=== PATIENT | female | born 1945 | race Caucasian/White ===

== ENCOUNTER 2016-12-19 10:13 | Emergency (ER) | payer MEDICARE ==
[2016-12-19 10:39] VITALS: BP 148/75
--- OUTSIDE RECORDS SUMMARY | 2016-12-19 11:12 | XMS REPORT | Summary of Care ---
:1945 Author Organization [facility] Address [address] [place] [address] [address] [place] [address] Care Team Providers Name Role Phone Mariola Goodrich Primary Care Physician Encounter Date(s): 11/11/16 - 11/11/16 [facility] [address] [place] [address] [address] [place] [address]- Discharge Diagnosis: Cervical dysphagia Discharge Disposition: Discharged to Home or Self Care Attending Physician: Jayce Capps DO Referring Physician: Mariola Goodrich MD Vital Signs Most recent to oldest [Reference Range]: 1 Peripheral Pulse Rate [60-100 bpm] 69 bpm (11/11/16 2:05 PM) Blood Pressure [90-130/60-90 mmHg] 143/65mmHg *HI* (11/11/16 2:05 PM) Mean Arterial Pressure, Cuff 91 mmHg (11/11/16 2:05 PM) Most recent to oldest [Reference Range]: 1 Height/Length Measured 152 cm (11/11/16 2:05 PM) Weight Dosing 85.8 kg (11/11/16 2:05 PM) Weight Measured 85.8 kg (11/11/16 2:05 PM) BSA Measured 1.82 m2 (11/11/16 2:05 PM) Body Mass Index Measured 37.14 kg/m2 (11/11/16 2:05 PM) Problem List No data available for this section Allergies, Adverse Reactions, Alerts No Known Medication Allergies Medications Aleve 220 mg, Oral, HS, 0 Refill(s), Start Date: 06/25/15 13:02:00 CDT Start Date: 06/25/15 Stop Date: 06/03/16 Status: Discontinuedenalapril 20 mg oral tablet 1 tab(s), Oral, Daily, 0 Refill(s), Start Date: 06/25/15 13:01:00 CDT Start Date: 06/25/15 Status: OrderedglipiZIDE 10 mg, Oral, BID, 0 Refill(s), Start Date: 06/25/15 13:02:00 CDT Start Date: 06/25/15 Status: Orderedhydrochlorothiazide 25 mg, Oral, Daily, 0 Refill(s), Start Date: 06/25/15 13:01:00 CDT Start Date: 06/25/15 Status: OrderedHYDROcodone-acetaminophen 5 mg-325 mg oral tablet See Instructions, 1-2 tab(s) Oral q4-6hr interval not to exceed 8 tablets/day, # 50 tab(s), 0 Refill(s), Start Date: 06/03/16 6:55:00 CDT, Pharmacy: [place], [place] Special Instructions: 1-2 tab(s) Oral q4-6hr interval not to exceed 8 tablets/ day Start Date: 06/03/16 Stop Date: 06/18/16 Status: Discontinuedlovastatin 10 mg, Oral, HS, 0 Refill(s), Start Date: 06/25/15 13:02:00 CDT Start Date: 06/25/15 Status: OfnlprdWku-X-Jzt Women 1 tab(s), Oral, Daily, 0 Refill(s), Start Date: 06/25/15 13:02:00 CDT Start Date: 06/25/15 Status: OrderedVitamin C 500 mg, Oral, Daily, 0 Refill(s), Start Date: 06/25/15 13:02:00 CDT Start Date: 06/25/15 Status: Orderedvitamin E 400 IntlUnit(s), Oral, Daily, 0 Refill(s), Start Date: 06/25/15 13:02:00 CDT Start Date: 06/25/15 Status: Ordered Results No data available for this section Immunizations No data available for this section Procedures Procedure Date Related Diagnosis Body Site Release Carpal Tunnel (Right, Hand R)1 06/03/16 Kidney stone 02/2007 1auto-populated from documented surgical case Social History No data available for this section Assessment and Plan No data available for this section
--- OUTSIDE RECORDS SUMMARY | 2016-12-19 11:12 | XMS REPORT | Summary of Care ---
:[address] [facility] Address [address] [place] [id number]- Care Team Providers Name Role Phone Mariola Goodrich Primary Care Physician Encounter Date(s): 11/16/16 - 11/16/[address] [id number] Discharge Disposition: 01 Discharged to Home or Self Care Attending Physician: Jayce Capps DO Admitting Physician: Jayce Capps DO Vital Signs No data available for this section Problem List No data available for this [...] Refill(s), Start Date: 06/03/16 6:55:00 CDT, Pharmacy: [facility] [place], [place] Special Instructions: 1-2 tab(s) Oral q4-6hr interval not to exceed 8 tablets/ day Start Date: 06/03/16 Stop Date: 06/18/16 Status: Discontinuedlovastatin 10 mg, Oral, HS, 0 Refill(s), Start Date: 06/25/15 13:02:00 CDT Start Date: 06/25/15 Status: [id number]-V-[id number] Women 1 tab(s), Oral, Daily, 0 Refill(s), [...]
[2016-12-19] MEDS ORDERED: KETOROLAC TROMETHAMINE 60 MG/2 ML VIAL IM ONE (11:23)
[2016-12-19] MEDS ORDERED: KETOROLAC TROMETHAMINE 30 MG/ML VIAL ONE (11:28)
--- NOTE | 2016-12-19 11:30 | ERNOTE ---
Upper Extremity HPI - Narrative Date of Service: 12/19/16 - General Extremities Pain Location: wrist: right Time Seen by Provider: 12/19/16 10:44 Source: patient Exam Limitations: no limitations - Immun/Allergies/Home Medications Immunizations: IMMUNIZATION HX Immunizations Up to Date Yes: tetanus within last 10 years History of Influenza Vaccine No Hx Pneumococcal Vaccination No Allergies/Adverse Reactions: Allergies Allergy/AdvReac Type Severity Reaction Status Date / Time No Known Allergies Allergy Verified 12/19/16 10:38 Home Medications: HOME MEDICATIONS Aleve 06/28/15 [Last Taken Unknown] Enalapril/Hydrochlorothiazide 20 mg PO DAILY 06/28/15 [Last Taken 09/17/16 08:00 ] Glipizide 10 mg PO DAILY 06/28/15 [Last Taken 09/17/16 08:00] Hydrochlorothiazide 25 mg PO DAILY 06/28/15 [Last Taken 09/17/16 08:00] Lovastatin 10 mg PO DAILY 06/28/15 [Last Taken 09/16/16 17:00] Multivitamin 06/28/15 [Last Taken 09/17/16 08:00] Vitamin C 06/28/15 [Last Taken 09/17/16 17:00] Vitamin E 06/28/15 [Last Taken 09/17/16 08:00] - History of Present Illness Narrative: 71-year-old female presenting to emergency room after a fall yesterday. Patient states that her right wrist hurts. Pain started after fall yesterday and has increased over the last day. Date (Duration): 12/19/16 Occurred: yesterday Location of Incident: home Severity: mild Method of Injury: Reports: fell Reason for Fall: Reports: lost balance - tripped over step, tripped Loss of Consciousness: Reports: no loss of consciousness Modifying Factors - (Improves): Reports: cold therapy, immobilization Associated Symptoms: Denies: tingling, weakness, loss of power (rt arm) Other Injuries: Reports: none Review of Systems - Narrative Narrative: Has right wrist pain. She is able to move all extremities. Sensory motion and sensation are all intact. Patient is able to move wrist with some mild discomfort. Capillary refills are brisk. Denies numbness, tingling, and extremity is warm. no bruising observed - Review of Systems Constitutional: Present: no symptoms reported EYE: Present: no symptoms reported ENT: Present: no symptoms reported Respiratory: Present: no symptoms reported Cardiology: Present: no symptoms reported Gastrointestinal/Abdominal: Present: no symptoms reported Genitourinary: Present: no symptoms reported Musculoskeletal: Present: See HPI, joint pain - right wrist Skin: Present: no symptoms reported Neurological: Present: no symptoms reported Endocrine: Present: no symptoms reported Hematologic/Lymphatic: Present: no symptoms reported Psych: Present: no symptoms reported - Patient's Past Medical History Patient History - Medical: Arthritis, Diabetes Type 2 Patient History - Cardiac/Respiratory: No pertinent hx Patient History - Cancer: No Hx of Cancer Patient History - Surgical Procedures: Other Patient History - Other: None LMP (females 10-50): Menopausal - Family History Mother Family History - Medical: Children Family History - Medical: No pertinent hx, Other - Social History Living Situations: home Psych History: No pertinent hx Does anyone smoke in the home?: No - Immunizations Immunizations Up to Date: Yes - tetanus within last 10 years Hx Pneumococcal Vaccination: No History of Influenza Vaccine: No Physical Exam - Physical Exam Narrative: The 71-year-old female presenting to the emergency room with right wrist pain after a fall. States she was at home and tripped over a concrete pad and landed on her right wrist. Upon exam right wrist is able to be moved, range of motion is within normal limits, color sensation and motion are all within normal limits. Left knee does have a 3 x 3 size bruise. Patient denies pain with walking. Tender to palpation. Patient does not feel the need for an x- ray to her knee after it was offer. General Appearance: Present: wd/wn, no apparent distress Ears, Nose, Throat: Present: normal ENT inspection Neck: Present: normal inspection Respiratory: Present: no respiratory distress Cardiovascular/Chest: Present: regular rate, rhythm Gastrointestinal/Abdominal: Present: normal bowel sounds Back Exam: Present: normal inspection Extremity Exam: Present: normal except - - right wrist pain, bruise to left knee. discomfort with palp. states she is able to walk easily with out discomfort. Neurological Exam: Present: alert, oriented, normal mood/affect, no motor/ sensory deficits Skin Exam: Present: normal color Lymphatic Exam: Present: no adenopathy ED Progress - Vital Signs Patient's Vital Signs:: I have reviewed the patient's vital signs. Vital Signs: Vital Signs 12/19/16 10:36 Temperature 37.6 C H Pulse Rate 79 Respiratory 16 Rate Blood Pressure 148/75 O2 Sat by Pulse 99 Oximetry - X-Ray X-Ray #1 X-Ray: wrist Interpretation: Reviewed by me X-ray Comments: x ray viewed by Dr Tinajero. No acute fracture observed per ED Attending. - Progress/Reassessment Chief Complaint: Upper Extremity Injury/Problem Progress:: Improved Departure Clinical Impression: Strain of right wrist Qualifiers: Encounter type: initial encounter Qualified Code(s): S66.911A - Strain of unspecified muscle, fascia and tendon at wrist and hand level, right hand, initial encounter - Departure Disposition: Home self-care Condition: Stable Instructions: Wrist Pain, [id number]-[id number] Print Language: Maori Additional Instructions: Continue previous home medications. May take [id number]-rvm-[id number] anti- inflammatory. Rest right rest. Apply ice 20 minutes on and 20 minutes off for discomfort. Return to the emergency room if condition worsens or he have increased pain or swelling. Referrals: Mariola Goodrich MD [Primary Care Provider] -
[2016-12-19] MEDS ORDERED: KETOROLAC TROMETHAMINE 30 MG/ML VIAL IM ONE (11:36)
== END 2016-12-19 11:47 | disposition home or self-care (01) ==
LOC: ER 10:13
PROC: 2W3EX1Z Immobilization of Right Hand using Splint (ICD-10-PCS; principal; 2016-12-19)
DX: S66.911A Strain of unspecified muscle, fascia and tendon at wrist and hand level, right hand, initial encounter (principal); W01.0XXA Fall on same level from slipping, tripping and stumbling without subsequent striking against object, initial encounter; Z91.81 History of falling; Y92.009 Unspecified place in unspecified non-institutional (private) residence as the place of occurrence of the external cause; Y99.9 Unspecified external cause status

== ENCOUNTER 2017-01-17 12:47 | Day surgery (SDC) | payer MEDICARE ==
[2017-01-17] MEDS ORDERED: GLUCAGON,HUMAN RECOMBINANT 1 MG VIAL IV ONE (13:35)
--- NOTE | 2017-01-17 13:35 | ERNOTE ---
Medical Problem HPI - Narrative Date of Service: 01/17/17 - General Chief Complaint: Foreign Body Exam Limitations: no limitations - Immun/Allergies/Home Medications Immunizations: IMMUNIZATION HX Immunizations Up to Date Yes History of Influenza Vaccine No Hx Pneumococcal Vaccination No Allergies/Adverse Reactions: Allergies No Known Allergies Allergy (Verified 01/17/17 13:20) Home Medications: HOME MEDICATIONS Aleve 06/28/15 [Last Taken Unknown] Enalapril/Hydrochlorothiazide 20 mg PO DAILY 06/28/15 [Last Taken 09/17/16 08:00 ] Glipizide 10 mg PO DAILY 06/28/15 [Last Taken 09/17/16 08:00] Hydrochlorothiazide 25 mg PO DAILY 06/28/15 [Last Taken 09/17/16 08:00] Lovastatin 10 mg PO DAILY 06/28/15 [Last Taken 09/16/16 17:00] Multivitamin 06/28/15 [Last Taken 09/17/16 08:00] Vitamin C 06/28/15 [Last Taken 09/17/16 17:00] Vitamin E 06/28/15 [Last Taken 09/17/16 08:00] - History of Present History Narrative: This 71-year-old female presenting to the emergency room. States that she was actually has chicken stuck in her throat. Patient was eating a piece of chicken which was not able to fully swallow it all the way down. Patient states that this has happened before, and that she did have an esophageal dilatation that was done in december. Date (Duration): 01/17/17 Timing: constant Severity: mild Modifying Factors - (Improves): Present: rest Modifying Factors - (Worsens): Present: eating Review of Systems - Review of Systems Constitutional: Present: no symptoms reported EYE: Present: no symptoms reported ENT: Present: no symptoms reported Respiratory: Present: no symptoms reported Cardiology: Present: no symptoms reported Gastrointestinal/Abdominal: Present: See HPI, vomiting Genitourinary: Present: no symptoms reported Musculoskeletal: Present: no symptoms reported Skin: Present: no symptoms reported Neurological: Present: no symptoms reported Endocrine: Present: no symptoms reported Hematologic/Lymphatic: Present: no symptoms reported Psych: Present: no symptoms reported - Narrative Narrative: had dilitation of her esophagus in December she is unsure of the date. - Patient's Past Medical History Patient History - Medical: Arthritis, Diabetes Type 2 Patient History - Cardiac/Respiratory: Hypertension, Hyperlipidemia Patient History - Cancer: No Hx of Cancer Patient History - Surgical Procedures: Other Patient History - Other: None - Family History Mother Family History - Medical: Children Family History - Medical: No pertinent hx, Other - Social History Living Situations: home Psych History: No pertinent hx Does anyone smoke in the home?: No Smoking Status: Never smoker Alcohol Use: none Drug Use: none - Immunizations Immunizations Up to Date: Yes Hx Pneumococcal Vaccination: No History of Influenza Vaccine: No Physical Exam - Physical Exam Narrative: This pleasant 71-year-old female complains of feeling like she has something stuck in her throat. She is unable to swallow at this time. States that she can feel something there. No food can be seen when viewing her oropharyngeal airway General Appearance: Present: wd/wn, alert, no apparent distress Eye Exam: Normal inspection: bilateral Ears, Nose, Throat: Absent: nasal congestion, sinus pain/drainage, pharyngeal erythema, pharyngeal swelling Neck: Present: normal inspection, nontender, full range of motion Respiratory: Present: no respiratory distress, normal breath sounds, no accessory muscle use Cardiovascular/Chest: Present: regular rate, rhythm, no murmur, normal peripheral pulses Gastrointestinal/Abdominal: Present: normal bowel sounds, nontender, soft Extremity Exam: Present: normal inspection, normal range of motion, no edema Neurological Exam: Present: alert, oriented, normal mood/affect Skin Exam: Present: normal color Lymphatic Exam: Present: no adenopathy ED Progress - Date and Time Seen: Date and Time: 01/17/17 16:24 Patient unable to pass food with treatment that was able to be provided in the ER. Dr. Avila notified for consult of EGD. - Results and Orders Patient's Lab Results:: I have reviewed the patient's lab results. - Vital Signs Patient's Vital Signs:: I have reviewed the patient's vital signs. Vital Signs: Vital Signs 01/17/17 13:15 Temperature 37.3 C Pulse Rate 89 Respiratory 16 Rate Blood Pressure 139/63 O2 Sat by Pulse 97 Oximetry - Progress/Reassessment Chief Complaint: Foreign Body Plan - Plan Plan: Dr Avila to take patient to IR for EGD and food removal. Departure - Departure Clinical Impression: Esophageal foreign body Qualifiers: Encounter type: initial encounter Qualified Code(s): T18.108A - Unspecified foreign body in esophagus causing other injury, initial encounter Disposition: [facility] Condition: Good
[2017-01-17] MEDS ORDERED: GLUCAGON,HUMAN RECOMBINANT 1 MG VIAL ONE (13:49)
[2017-01-17 14:44] LABS: Hematocrit 45.2 % (37.0-47.0); Hemoglobin 14.8 gm/dL (12.5-16.0); Mean Corpuscular Hemoglobin 29.5 pg (27-31); Mean Corpuscular Hgb Conc 32.7 g/dl (32-36); Mean Platelet Volume 11.4 fl (6.0-9.5); Neutrophil # 3.7 K/mm3 (1.3-6.0); Neutrophil % 52.8 % (42-75.0); Platelet Count 226 K/mm3 (150-450); Red Blood Count 5.02 M/mm3 (4.2-5.4); Red Cell Distribution Width 13.1 % (11.5-14.0); White Blood Count 6.9 K/mm3 (4.0-10.5)
[2017-01-17 15:00] LABS: Bilirubin, Total 0.4 mg/dL (0.0-1.1); Ca. Corrected For Albumin 8.6 mg/dL (8.4-10.2); Calcium * 8.9 mg/dL (7.9-10.9); Carbon Dioxide 30.8 mmol/L (24-32.6); Potassium 3.8 mmol/L (3.4-4.6); Total Protein 7.5 gm/dL (6.2-8.2)
--- NOTE | 2017-01-17 15:22 | HP ---
Chief Complaint - Chief Complaint Date of Service: 01/17/17 Time of Service: 15:15 Chief Complaint: cannot swallow History of Present Illness: Was eating chicken at noon at [employer] and piece got stuck and cannot swallow or handle secretions. Glucagon has been ineffective. She cannot swallow saliva. She had EGD with FB removal 09/18/16. She subsequently saw Dr Goodrich for dysphagia on 11/11/16 and was referred to Dr Capps. He did an EGD on 01/04/17 with dilation. He told her she had a hiatal hernia and he stretched both ends. She is due to see him back tomorrow for f/u visit. There is a path report of esophageal biopsy (squamous mucosa with reflux changes ) but no OP note. - Patient's Past Medical History Patient History - Medical: Arthritis, Diabetes Type 2 Patient History - Cardiac/Respiratory: Hypertension, Hyperlipidemia Patient History - Cancer: No Hx of Cancer Patient History - Surgical Procedures: Other Patient History - Other: None - Family History Mother Family History - Medical: Children Family History - Medical: No pertinent hx, Other - Social History Living Situations: home Psych History: No pertinent hx Does anyone smoke in the home?: No Smoking Status: Never smoker Alcohol Use: none Drug Use: none - Immunizations Immunizations Up to Date: Yes Hx Pneumococcal Vaccination: No History of Influenza Vaccine: No Review Of Systems (GEN) - Review of Systems EENTM: Present: No Symptoms Reported Respiratory: Present: Other - Just got over 2 weeks of bronchitis--treated with Zpack Cardiac: Present: No Symptoms Reported Abdominal: Present: Vomiting. Absent: Abdominal Pain Genitourinary: Absent: Burning Musculoskeletal: Present: Other - pain in right hand from fall Neurological: Present: No Symptoms Reported Skin: Present: No Symptoms Reported, Bruising Immunizations: IMMUNIZATION HX Immunizations Up to Date Yes History of Influenza Vaccine No Hx Pneumococcal Vaccination No Allergies/Adverse Reactions: Allergies Allergy/AdvReac Type Severity Reaction Status Date / Time No Known Allergies Allergy Verified 01/17/17 13:20 Home Medications: HOME MEDICATIONS Aleve 06/28/15 [Last Taken Unknown] Enalapril/Hydrochlorothiazide 20 mg PO DAILY 06/28/15 [Last Taken 09/17/16 08:00 ] Glipizide 10 mg PO DAILY 06/28/15 [Last Taken 09/17/16 08:00] Hydrochlorothiazide 25 mg PO DAILY 06/28/15 [Last Taken 09/17/16 08:00] Lovastatin 10 mg PO DAILY 06/28/15 [Last Taken 09/16/16 17:00] Multivitamin 06/28/15 [Last Taken 09/17/16 08:00] Vitamin C 06/28/15 [Last Taken 09/17/16 17:00] Vitamin E 06/28/15 [Last Taken 09/17/16 08:00] Exam - Exam Vital Signs: Vital Signs - Last Taken Temp 37.3 C 01/17/17 13:15 Pulse 89 01/17/17 13:15 Resp 16 01/17/17 13:15 BP 139/63 01/17/17 13:15 Pulse Ox 97 01/17/17 13:15 Constitutional: Present: Alert, Oriented x3, Cooperative, Mild distress ENT Exam: Present: normal ENT inspection Eye Exam: bilateral eye: normal inspection Neck: Present: full range of motion, normal inspection Back Exam: Present: normal inspection Breasts: Present: Exam deferred Respiratory: Present: lungs clear, no respiratory distress Cardiovascular/Chest: Present: normal peripheral pulses, regular rate, rhythm, no murmur Abdomen: Present: nontender /Rectal: Present: Exam deferred Extremity: Present: normal range of motion, no calf tenderness, lower extremity edema Skin Exam: Present: normal color, warm/dry Neurologic: Present: egg caser II-XII nml as tested, normal cerebellar test, no motor/ sensory deficits Appearance: Present: appropriate appearance, appropriate insight Eye contact: Present: cooperative, good eye contact, normal speech Thoughts: Present: normal thought pattern Diagnostic Studies: Abnormal Lab Results 01/17/17 01/17/17 Range/Units 14:30 14:30 MPV 11.4 H (6.0-9.5) fl Eosinophils % 5.5 H (0.0-3.0) % Plasma Sodium 143 H (130-142) mmol/L Est GFR (Non-Af Amer) 58 L (60-130) mL/min BUN/Creatinine Ratio 23.0 H (9.0-21.6) Random Glucose 180 H (70-110) mg/dL Laboratory Results WBC 6.9 K/mm3 (4.0-10.5) 01/17/17 14:30 RBC 5.02 M/mm3 (4.2-5.4) 01/17/17 14:30 Hgb 14.8 gm/dL (12.5-16.0) 01/17/17 14:30 Hct 45.2 % (37.0-47.0) 01/17/17 14:30 MCV 90.0 fl (78-100) 01/17/17 14:30 MCH 29.5 pg (27-31) 01/17/17 14:30 MCHC 32.7 g/dl (32-36) 01/17/17 14:30 RDW 13.1 % (11.5-14.0) 01/17/17 14:30 Plt Count 226 K/mm3 (150-450) 01/17/17 14:30 MPV 11.4 fl (6.0-9.5) H 01/17/17 14:30 Immature Gran % (Auto) 0.10 % (0.001-0.429) 01/17/17 14: Immature Gran # (Auto) 0.01 K/mm3 (0.000-0.0310) 01/17/17 14:30 Neutrophils % 52.8 % (42-75.0) 01/17/17 14:30 Lymphocytes % 32.2 % (20-51) 01/17/17 14:30 Monocytes % 8.4 % (0.0-9) 01/17/17 14:30 Eosinophils % 5.5 % (0.0-3.0) H 01/17/17 14:30 Basophils % 1.0 % (0.0-1.0) 01/17/17 14:30 Nucleated RBC % 0.0 k/mm3 (0-1) 01/17/17 14:30 Neutrophils # 3.7 K/mm3 (1.3-6.0) 01/17/17 14: Lymphocytes # 2.2 k/mm3 (1.5-3.5) 01/17/17 14: Monocytes # 0.6 k/mm3 (0.0-1.0) 01/17/17 14: Eosinophils # 0.4 k/mm3 (0.0-0.7) 01/17/17 14: Absolute Basophils 0.1 k/mm3 (0.0-0.1) 01/17/17 14:30 PTT (Endy) 25.9 Seconds (24-32) 01/17/17 14:30 Sodium 142 mmol/L (132-142) 01/17/17 14:30 Plasma Sodium 143 mmol/L (130-142) H 01/17/17 14:30 Potassium 3.8 mmol/L (3.4-4.6) 01/17/17 14:30 Chloride 105 mmol/L (97-106) 01/17/17 14:30 Carbon Dioxide 30.8 mmol/L (24-32.6) 01/17/17 14:30 Anion Gap 10.0 mmol/L (6.8-13.8) 01/17/17 14:30 BUN 23 mg/dL (3-23) 01/17/17 14:30 Creatinine 1.00 mg/dL (0.4-1.4) 01/17/17 14:30 Est GFR (Non-Af Amer) 58 mL/min (60-130) L 01/17/17 14:30 BUN/Creatinine Ratio 23.0 (9.0-21.6) H 01/17/17 14:30 Random Glucose 180 mg/dL (70-110) H 01/17/17 14:30 Calcium 8.9 mg/dL (7.9-10.9) 01/17/17 14:30 Calcium Adj for Albumin 8.6 mg/dL (8.4-10.2) 01/17/17 14:30 Total Bilirubin 0.4 mg/dL (0.0-1.1) 01/17/17 14:30 AST 20 U/L (0-48) 01/17/17 14:30 ALT 29 U/L (19-67) 01/17/17 14:30 Alkaline Phosphatase 61 U/L (50-170) 01/17/17 14:30 Total Protein 7.5 gm/dL (6.2-8.2) 01/17/17 14:30 Albumin 4.0 gm/dl (3.4-5.0) 01/17/17 14:30 Assessment/Plan - Assessment/Plan (1) Esophageal foreign body Assessment: She will require esophagoscopy for foreign body removal with general anesthesia to protect airway. Discussed this with her and her including risks and expected course. After an interactive discussion, her questions have been answered to her apparent satisfaction and she has given informed consent for esophagoscopy with foreign body removal. Her Summary Sheet from the clinic was printed and her last Clinic Visit Note was also printed. Problem: Acute Qualifiers: Encounter type: initial encounter Qualified Code(s): T18.108A - Unspecified foreign body in esophagus causing other injury, initial encounter
[2017-01-17] MEDS ORDERED: RINGERS SOLUTION,LACTATED 1,000 ML IV ONE (16:55)
[2017-01-17] MEDS ORDERED: PANTOPRAZOLE SODIUM 40 MG in NORMAL SALINE 100 ML IV ONE (17:31)
[2017-01-17] MEDS ORDERED: RINGERS SOLUTION,LACTATED 1,000 ML IV PRN (17:31)
--- NOTE | 2017-01-17 17:39 | OR ---
Operative Report - Dictated Report Narrative: Operative Report Date of operation 01/17/2017 Preoperative diagnosis: Esophageal obstruction from foreign body Postoperative diagnosis: Same (relieved). Hiatal hernia with esophagitis Operation: Esophagoscopy with passage of foreign body Surgeon: Dr Avila Anesthesia: GENERAL ENDOTRACHEAL [facility] CRNA Indications for procedure: The patient is a 71-year-old female who was eating chicken at about noon. A piece got lodged and she is unable to handle her secretions. She has had previous foreign body obstruction in September 2016. She underwent an EGD on 01/04/2017 with esophageal dilation. Findings: Esophageal obstruction from impacted chicken bolus (past) hiatal hernia with esophagitis Narrative of procedure: The patient was identified preoperatively, and prior to the administration of anesthetic a multidisciplinary timeout was observed With the patient in the recumbent position, SCDs were applied and rapid sequence general endotracheal intubation performed. General endotracheal anesthetic was administered.. The flexible fiberoptic gastroscope was advanced into the posterior pharynx which appeared normal. The endotracheal tube was seen to be in good position. The supraglottic larynx appeared normal. The scope was advanced under direct vision into the proximal esophagus which appeared normal with exception of pooled secretions which were suctioned. The esophagus appeared freely distensible with normal mucosa. The esophageal mucosa appeared normal down to the gastroesophageal junction where an impacted meat bolus was pushed a there was a small hiatal hernia. Head of the advancing scope and passed into the stomach. The GE junction appeared mildly inflamed however was normally distensible. The scope was advanced into the stomach which was insufflated with air. The gastric mucosa appeared grossly normal. The insufflated air was removed from the stomach. The scope was withdrawn withdrawn through a small hiatal hernia. The GE junction was again visualized. There was mild inflammation and edema but the area appeared patent. The scope was withdrawn from the patient, and the procedure terminated. The patient tolerated the anesthetic and procedure well without complication and was transferred to the recovery room awake, extubated, and in stable condition. Reviewed and electronically signed
[2017-01-17 19:50] VITALS: BP 154/70
== END 2017-01-17 16:32 | disposition home or self-care (01) ==
LOC: ER 12:47 → AMB 16:31
PROVIDERS: ATTEND Surgery
PROC: 0DC48ZZ Extirpation of Matter from Esophagogastric Junction, Via Natural or Artificial Opening Endoscopic (ICD-10-PCS; principal; 2017-01-17 16:24)
DX: T18.128A Food in esophagus causing other injury, initial encounter (principal); K20.9 Esophagitis, unspecified; K44.9 Diaphragmatic hernia without obstruction or gangrene; E11.9 Type 2 diabetes mellitus without complications; I10 Essential (primary) hypertension; E78.5 Hyperlipidemia, unspecified